=== PATIENT | male | born 1960 | race Hispanic/Latino ===

== ENCOUNTER 2018-04-07 15:49 | Emergency (ER) | payer BC, OTHER ==
[2018-04-07 15:58] VITALS: BP 142/80; PULSE 95; RESP 16; TEMP 98.7; O2SAT 96
[2018-04-07] MEDS ORDERED: Naproxen 500 MG TAB PO STA (16:04)
--- NOTE | 2018-04-07 16:37 | ED PDOC ---
Upper Extremity Pain/Injury Time Seen by Provider: 04/07/18 16:00 Chief Complaint (Nursing): Finger,Hand,&Wrist Chief Complaint (Provider): Right hand injury History Per: Patient History/Exam Limitations: no limitations Onset/Duration Of Symptoms: Hrs (20) Current Symptoms Are (Timing): Still Present Quality: Dull Severity: Moderate Hands/Wrist (Pic): 1 - Swelling Additional Complaint(s): 57 yo male comes to ER after hitting his right hand on a wall. Pt states he was trying to kill a rat at his sons house when he swung at the rat he hit his hand against a wall. Pt comes to ER after localized edema to the posterior hand. Injury 20 minutes [employer]. No pain medications. Past Medical History Reviewed: Historical Data, Nursing Documentation, Vital Signs Vital Signs: Last Vital Signs Temp 98.7 F 04/07/18 15:55 Pulse 95 H 04/07/18 15:55 Resp 16 04/07/18 15:55 BP 142/80 04/07/18 15:55 Pulse Ox 96 04/07/18 15:55 - Medical History PMH: Arthritis (hip; knee; back), Diabetes (Borderline), Fractures (NASAL, ELBOW , ANKLE), HTN, Sleep Apnea - Surgical History Surgical History: Endoscopy - Family History Family History: States: Unknown Family Hx - Living Arrangements Living Arrangements: With Family - Social History Current smoker - smoking cessation education provided: No - Home Medications Home Medications: Ambulatory Orders Medication Instructions Recorded Losartan Potassium 25 mg PO DAILY 02/03/14 Oxycodone Hydrochloride [Oxycontin] 60 mg PO BID 02/03/14 Albuterol 0.5% [Albuterol 0.5% 2.5 mg IH Q6H PRN #3 neb 12/14/14 Inhal Leslie (2.5 mg/0.5 ml) UD] Azithromycin [Zithromax Z-Nicolas] 250 mg PO DAILY 5 Days tab 12/14/14 Losartan [Cozaar] 50 mg PO DAILY #30 tab 10/20/16 - Allergies Allergies/Adverse Reactions: Allergies Allergy/AdvReac Type Severity Reaction Status Date / Time Benzodiazepines Allergy DIZZINESS Verified 04/07/18 15:55 Penicillins AdvReac RASH Verified 04/07/18 15:55 Review of Systems ROS Statement: Except As Marked, All Systems Reviewed And Found Negative Constitutional: Negative for: Fever Skin: Positive for: Other Physical Exam - Reviewed Nursing Documentation Reviewed: Yes Vital Signs Reviewed: Yes - Physical Exam Appears: Positive for: Well, Non-toxic, No Acute Distress Head Exam: Positive for: ATRAUMATIC, NORMAL INSPECTION, NORMOCEPHALIC Skin: Positive for: Normal Color, Warm, DRY Eye Exam: Positive for: Normal appearance ENT: Positive for: Normal ENT Inspection Neck: Positive for: Normal Respiratory: Negative for: Accessory Muscle Use, Respiratory Distress Pulses-Radial (L): 2+ Pulses-Radial (R): 2+ Back: Positive for: Normal Inspection Extremity: Positive for: Normal ROM, Other (Hematoma ). Negative for: Tenderness Neurologic/Psych: Positive for: Alert, Oriented - ECG O2 Sat by Pulse Oximetry: 96 Medical Decision Making Medical Decision Making: XR normal Chang wrap placed. Discussed ice and elevation. Disposition - Clinical Impression Clinical Impression: Hand injury, Hematoma - Patient ED Disposition Is Patient to be Admitted: No Counseled Patient/Family Regarding: Diagnosis, Need For Followup - Disposition Referrals: Abi Turk MD [Staff Provider] - Disposition: Routine/Home Disposition Time: 16:38 Condition: GOOD Instructions: Contusion (DC)
--- NOTE | 2018-04-07 17:34 | RAD ---
PROCEDURE: Right Wrist Radiographs. HISTORY: right hand injury COMPARISON: None. FINDINGS: BONES: No acute fracture. JOINTS: Mild degenerative changes. SOFT TISSUES: Soft tissue swelling on dorsum of the hand. OTHER FINDINGS: Vascular calcifications. IMPRESSION: No acute fracture. Degenerative changes. Repeat evaluation should be considered if symptoms persists.
== END 2018-04-07 16:46 | disposition home or self-care (01) ==
LOC: H.ER 15:49
DX: S60.221A Contusion of right hand, initial encounter (principal); W22.8XXA Striking against or struck by other objects, initial encounter; Y92.89 Other specified places as the place of occurrence of the external cause; I10 Essential (primary) hypertension; Z88.0 Allergy status to penicillin